=== PATIENT | female | born 2000 | race Caucasian/White ===

== ENCOUNTER 2023-10-01 08:37 | Emergency (ER) | payer OTHER, SELFPAY ==
[2023-10-01 08:39] VITALS: BP 139/76
--- NOTE | 2023-10-01 09:05 | ED.GENMED ---
History of Present Illness
General
Chief Complaint: Urinary Symptoms
Source: patient
Time Seen by Provider: 10/01/23 08:44
Travel History
Have you had any contact with someone who has COVID-19?: No
Do you have any symptoms of coronavirus? Fever > 100 degrees, chills, cough, shortness of breath, sore throat, loss of taste or smell, muscle aches, or headache?: No
History of Present Illness
History of Present Illness:
23-year-old female presents to the emergency room complaining of dysuria, frequency and hematuria. Symptoms began early this morning. She denies any vaginal discharge. Patient does not take any prescription medications. She denies any previous
medical history.
Past History
Past History
ED Past Medical History: None
ED Past Surgical History: None
Social History
Tobacco: Non-smoker
Alcohol: None
Drug: None
Phy Exam
Physical Exam
Physical Exam:
General: Awake, Alert, Oriented X3. No acute distress.
Vitals: unremarkable
Head: Atraumatic
Eyes: Pupils equal, EOMI
Throat: Airway intact, no exudates
Neck: Trachea midline
Lungs: Clear and equal b/l
Heart: Regular rate, no murmurs
Abd: Soft, Nontender, No pulsatile mass
Back: No CVA tenderness percussion
Neuro: Nonfocal
Skin: Warm, dry, no rash
Extremities: pulses equal b/l, no edema
Course
Orders/Labs/Results
Orders:
Orders
10/01/23 08:52
Test Result ONCE
10/01/23 08:53
HCG, Urine Qualitative Screen Urgent
Date Specimen was Collected: 10/01/23
Time Specimen was Collected: 08:52
Urinalysis Reflex To Culture Urgent
Date Specimen was Collected: 10/01/23
Time Specimen was Collected: 08:51
Urine Microscopic Reflex Cult Urgent
Urine Culture Urgent
LOR Source: U
Specimen Description:
Date Specimen was Collected: 10/01/23
Time Specimen was Collected: 08:51
10/01/23 10:57
Nitrofurantoin Monohydrate [Macrobid] 100 mg PO NOW STA
Phenazopyridine HCl [Pyridium] 200 mg PO NOW STA
Abnormal Lab Results
10/01/23
08:53
Ur Occult Blood Reflex 4+ A
(Negative)
Leukocyte Esterase Rfl 2+ A
(Negative)
Urine RBC 3-6 A /HPF
(0-2)
Urine WBC (Reflex) 40-50 A /HPF
(0-5)
Urine Bacteria (Reflex) Many A
(Negative)
Vital Signs
Initial and Last Documented VS:
Initial Vital Signs
Temp Pulse Resp BP Pulse Ox
98.9 F 78 16 139/76 98
10/01/23 08:39 10/01/23 08:39 10/01/23 08:39 10/01/23 08:39 10/01/23 08:39
Last Documented Vital Signs
Temp Pulse Resp BP Pulse Ox
98.9 F 69 16 125/78 100
10/01/23 08:39 10/01/23 11:09 10/01/23 11:09 10/01/23 11:09 10/01/23 11:09
MDM/Problems Addressed
Differential Diagnosis Includes:
Kidney stone, hemorrhagic cystitis, bladder lesion
MDM/Problems Addressed:
Patient has symptoms concerning for urinary tract infection. Her urinalysis shows a significant number of white blood cells in addition to some red blood cells. Results are highly suggestive of a urinary tract infection. Patient will be treated
with Macrobid. Patient stable for discharge and outpatient follow-up. Encouraged follow-up with her family doctor in 1 to 2 weeks to make sure the hematuria is cleared.
*Pulse Oximetry
Patient hypoxic: no
*Critical Care Note
Total Time (30-74mins, 75-104mins- exclusive of procedures): Not Applicable
ED Attending Note
-
Portions of this chart may have been created with voice recognition software.� Occasional wrong word or��sound alike� substitutions may have occurred due to the inherent limitations of voice recognition software.
Discharge Plan
Departure
Patient Disposition: Home (Routine Discharge)
Date of Disposition: 10/01/23
Time of Disposition: 10:58
Patient with high blood pressure during this ER visit?: Yes
Condition: Good
Discharge Problem:
Acute hemorrhagic cystitis
Instructions: Acute Cystitis (DC)
Prescriptions:
New
nitrofurantoin monohyd/m-cryst [Macrobid] 100 mg capsule
100 mg PO Q12H 5 Days Qty: 10 0RF
No Action
ondansetron 4 mg Tablet,Disintegrating
4 mg PO TIDPRN PRN (Reason: nausea/vomiting) Qty: 10 0RF
Referrals:
Liu Ackerman CRNP [Family Provider] -
Activity Restrictions/Additional Instructions:
Your urinalysis is consistent with a urinary tract infection which is causing the blood in your urine. I have sent a prescription for Macrobid to the pharmacy. You should take this twice a day for 5 days. Follow-up with your primary care provider
to recheck your urine in a couple weeks to make sure the blood has gone away.
Interventions
Interventions:
*Risk Screen - Suicide Last Done: 10/01/23 08:42
*General Assessment Last Done: 10/01/23 08:42
*Neglect/Abuse Screening Last Done: 10/01/23 08:42
ED- Fall Risk Assessment Last Done: 10/01/23 11:09
*ED COVID-19 Vaccine History Last Done: 10/01/23 08:56
*Nursing Disposition Last Done: 10/01/23 11:09
ED-Female Genitourinary Assessment Last Done: 10/01/23 08:56
Discharge Date and Time
Discharge Date/Time: 10/01/23 11:11
[2023-10-01 10:31] LABS: Urine Albumin Trace (Neg - Trace); Urine Bilirubin Negative (Negative); Urine Character Clear (Clear); Urine Color Yellow; Urine Glucose Negative (Negative); Urine Ketone Negative (Negative); Urine Leukocyte 2+ (Negative); Urine Nitrite Negative (Negative); Urine Occult Blood 4+ (Negative); Urine Specific Gravity 1.005 (<1.030); Urine Urobilinogen Negative (Neg - 1+)
[2023-10-01 10:35] LABS: HCG, Urine Qualitative Screen Negative
[2023-10-01 10:51] LABS: Urine Mucus Few; Urine Squamous Cell >30 /LPF (Few)
[2023-10-01 10:52] LABS: Urine Bacteria Many (Negative); Urine White Cell 40-50 /HPF (0-5)
[2023-10-01] MEDS: Pyridium 200 MG PO (11:08)
[2023-10-01] MEDS: MACROBID 100 MG PO (11:08)
[2023-10-01 11:09] VITALS: BP 125/78
== END 2023-10-01 11:11 | disposition home or self-care (01) ==
LOC: EMR 08:37
PROVIDERS: EMERGENCY PHYSICIAN Emergency Medicine; FAMILY PHYSICIAN Nurse Practitioner Gerontology
DX: N30.01 Acute cystitis with hematuria (principal); R03.0 Elevated blood-pressure reading, without diagnosis of hypertension
CPT/HCPCS: 99283; 81003; 81015; 81025; 87071; 87086; 87186